=== PATIENT | male | born 1960 | race Caucasian/White ===

== ENCOUNTER 2018-01-10 10:21 | Emergency (ER) | payer MEDICAID, OTHER ==
[~2018-01-10] VITALS: Ht 160 cm; Wt 45.5 kg
[2018-01-10 10:43] VITALS: BP 110/75
== END 2018-01-10 11:46 | disposition home or self-care (01) ==
LOC: EMS 10:23
DX: Z48.02 Encounter for removal of sutures (principal)
CPT/HCPCS: 99281

== ENCOUNTER 2018-06-18 18:48 | Emergency (ER) | payer MEDICAID ==
[~2018-06-18] VITALS: Ht 160 cm; Wt 43.2 kg
[~2018-06-18 18:48] MED LIST: ATROPINE SULFATE 0.1 MG/ML 10 ML SYRINGE IVP ONE; EPINEPHrine 1:10,000 [1 MG/10 ML] SYRINGE ONE; ETOMIDATE 2 MG/ML 10 ML VIAL IVP ONE; SODIUM BICARBONATE [ADULT] 8.4% 50 MEQ/50 ML SYRINGE IVP ONE; SUCCINYLCHOLINE CHLORIDE 20 MG/ML 10 ML VIAL IVP ONE
[2018-06-18] MEDS ORDERED: SODIUM CHLORIDE 0.9% 1,000 ML IV ONE ×2 (19:15→22:15)
[2018-06-18] MEDS ORDERED: NALOXONE HCL 1 MG/ML 2 ML SYG IM ONE (19:45)
[2018-06-18] MEDS ORDERED: LEVOFLOXACIN 750 MG/D5% WATER 150 ML IV ONE (21:00)
[2018-06-18] MEDS ORDERED: PIPERACILLIN/TAZO 3.375 GM/D5W 50 ML IV ONE (21:00)
[2018-06-18] MEDS ORDERED: RAPID SEQUENCE KIT [RSI] 1 EACH KIT ONE (21:19)
[2018-06-18] MEDS ORDERED: SUCCINYLCHOLINE CHLORIDE 20 MG/ML 10 ML VIAL ONE (21:19)
[2018-06-18 21:27] LABS: MEAN CORPUSCULAR HEMOGLOBIN 27.1 pg (26.0-34.0); MEAN CORPUSCULAR HGB CONC 30.7 G/dL (31.0-37.0); MEAN CORPUSCULAR VOLUME 88 fL (80-100); RED BLOOD CELL COUNT(AUTO) 7.73 MIL/uL (4.50-5.90); RED CELL DISTRIBUTION WIDTH 17.4 % (11.5-14.5)
[2018-06-18 21:32] LABS: SODIUM SERUM 138 mmol/L (136-145)
[2018-06-18 21:33] LABS: ANION GAP 20 mmol/L (8-16); CALCIUM, TOTAL 9.2 mg/dL (8.8-10.5); CARBON DIOXIDE 17 mmol/L (22-29); CHLORIDE 101 mmol/L (98-107); CREATININE 2.29 mg/dL (0.60-1.30); GLOMERULAR FILTR. RATE CALC 30 mL/min (>60); GLUCOSE,RANDOM 196 mg/dL (70-110); POTASSIUM 4.7 mmol/L (3.5-5.1); UREA NITROGEN, BLOOD 19 mg/dL (7-18)
[2018-06-18 21:34] LABS: TROPONIN I 0.08 ng/mL (0.00-0.05)
[2018-06-18 21:37] LABS: HEMATOCRIT 68.2 % (41-53)
[2018-06-18 21:52] LABS: ALANINE AMINOTRANSFERASE 72 U/L (12-78); ALBUMIN 2.1 g/dL (3.4-5.0); ALKALINE PHOSPHATASE 134 U/L (46-116); ASPARTATE AMINOTRANSFERASE 195 U/L (15-37); BILIRUBIN,TOTAL 1.2 mg/dL (0.1-1.0); CREATINE KINASE MB 8.2 ng/mL (0-5); CREATINE KINASE, TOTAL 103 U/L (39-308); TOTAL PROTEIN, SERUM 7.6 g/dL (6.4-8.2)
[2018-06-18 21:58] LABS: GLUCOSE,POINT OF CARE 142 MG/DL (70-110)
[2018-06-18] MEDS ORDERED: SODIUM CHLORIDE 0.9% 100 ML ONE (21:59)
[2018-06-18] MEDS ORDERED: IOVERSOL 320 MG/ML 100 ML VIAL ONE (21:59)
[2018-06-18 22:01] LABS: INR 1.7 (0.9-1.1); PROTHROMBIN TIME 17.8 SEC (9.4-11.6)
[2018-06-18] MEDS ORDERED: NOREPINEPHRINE 4 MG/D5%-WATER 250 ML IV PRN (22:03)
[2018-06-18 22:21] LABS: PLATELET COUNT (AUTO) 87 K/uL (150-450)
[2018-06-18 22:22] LABS: BAND NEUTROPHILS % (MANUAL) 24 % (0-5); EOSINOPHILS % (MANUAL) 1 % (1-6); LYMPHOCYTES % (MANUAL) 21 % (22-44); MONOCYTES % (MANUAL) 1 % (2-9); PROMYELOCYTES % 1 (0-0); SEGMENTED NEUTROPHILS % 52 % (40-70)
[2018-06-18 22:23] LABS: BLASTS, MANUAL % 8 (0-0)
[2018-06-18 22:33] LABS: GLUCOSE,POINT OF CARE 100 MG/DL (70-110)
[2018-06-18] MEDS ORDERED: 0.9% SODIUM CHLORIDE 10 ML SYRINGE IVP PRN (22:45)
[2018-06-18] MEDS ORDERED: ACETAMINOPHEN 650 MG RECTAL SUPPOSITORY PR PRN (22:45)
[2018-06-18 22:52] LABS: LACTIC ACID 18.5 mmol/L (0.4-2.0)
[2018-06-18 23:40] VITALS: BP 77/54
[2018-06-18] MEDS ORDERED: PROPOFOL 1000 MG/ISO-OSM 100 ML IV PRN (23:56)
[2018-06-18] MEDS ORDERED: DOPamine HCL 400 MG/D5%-WATER 250 ML IV PRN (23:56)
[2018-06-19 00:44] LABS: GLUCOSE,POINT OF CARE 74 MG/DL (70-110)
[2018-06-19] MEDS ORDERED: PIPERACILLIN/TAZO 3.375 GM/D5W 50 ML IV SCH (03:00)
[2018-06-19] MEDS ORDERED: FAMOTIDINE 10 MG/ML 2 ML VIAL IVP SCH (09:00)
[2018-06-20 12:23] LABS: PATHOLOGY REVIEW, DIFF YES
[2018-06-20] MEDS ORDERED: LEVOFLOXACIN 750 MG/D5% WATER 150 ML IV SCH ×2 (21:00→22:00)
== END 2018-06-19 07:31 | disposition expired ==
LOC: EMS 18:51 → ICU 21:30 → UNDOADMIN 21:30 → EMS 06-19 07:31
DX: I46.9 Cardiac arrest, cause unspecified (principal); A41.9 Sepsis, unspecified organism; J96.90 Respiratory failure, unspecified, unspecified whether with hypoxia or hypercapnia; N19 Unspecified kidney failure; F11.10 Opioid abuse, uncomplicated; F17.210 Nicotine dependence, cigarettes, uncomplicated
CPT/HCPCS: 31500; 36415; 36556; 71045; 80053; 82140; 82550; 82553; 82962; 83605; 84484; 85025; 85610; 85730; 87040; 92950; 93005; 96365; 96367; 96368; 96372; 99291; G0480; J0171; J0330; J0461; J1265; J1956; J2310; J2543 ×2; J3490 ×2; J7030; J7050; Q9967; Z7610; 94002